=== PATIENT | female | born 2005 | race Caucasian/White ===

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

== ENCOUNTER 2023-03-07 11:44 | Emergency (ER) | payer BC, MEDICAID ==
[2023-03-07 12:36] LABS: APPEARANCE,URINE CLOUDY; BILIRUBIN,URINE NEGATIVE (NEGATIVE); COLOR,URINE YELLOW; GLUCOSE,URINE NEGATIVE (NEGATIVE); KETONES,URINE NEGATIVE (NEGATIVE); LEUKOCYTE ESTERASE,URINE TRACE (NEGATIVE); NITRITE,URINE POSITIVE (NEGATIVE); OCCULT BLOOD,URINE TRACE-INTACT (NEGATIVE); PH,URINE 5.5 (5.0-8.0); PROTEIN,URINE NEGATIVE (NEGATIVE); UROBILINOGEN,URINE 0.2 EU/dL (<2.0)
[2023-03-07 12:50] LABS: BACTERIA,URINE 3+ (NEGATIVE); EPITHELIAL CELLS,URINE FEW (NONE-FEW); MUCUS,URINE LIGHT (NONE-MOD); RBC,URINE 0-1 (0-2/HPF)
[2023-03-07 13:12] LABS: CORONAVIRUS COVID-19 NAA NEGATIVE (NEGATIVE); INFLUENZA A NAA NEGATIVE (NEGATIVE); INFLUENZA B NAA NEGATIVE (NEGATIVE)
[2023-03-07 13:21] LABS: BASOPHILS ABSOLUTE AUTO 0.09 K/uL (0.00-0.30); BASOPHILS PERCENT AUTO 0.7 % (0.0-1.0); EOSINOPHILS ABSOLUTE AUTO 0.18 K/uL (0.00-0.70); EOSINOPHILS PERCENT AUTO 1.4 % (0.0-5.0); HEMOGLOBIN 15.3 g/dL (12.0-16.0); IMMATURE GRAN ABSOLUTE AUTO 0.04 K/uL (0.00-0.05); IMMATURE GRAN PERCENT AUTO 0.3 % (0.0-0.4); LYMPHOCYTES ABSOLUTE AUTO 3.76 K/uL (2.00-8.80); LYMPHOCYTES PERCENT AUTO 30.1 % (50.0-65.0); MEAN CORPUSCULAR HEMOGLOBIN 29.3 pg (28.0-32.0); MEAN CORPUSCULAR VOLUME 86.2 fL (83.0-99.0); MEAN PLATELET VOLUME 8.4 fL (9.4-12.3); MONOCYTES ABSOLUTE AUTO 0.66 K/uL (0.10-1.40); MONOCYTES PERCENT AUTO 5.3 % (2.0-10.0); NEUTROPHILS ABSOLUTE AUTO 7.75 K/uL (1.50-8.50); NEUTROPHILS PERCENT AUTO 62.2 % (35.0-45.0); PLATELET COUNT,PLT 304 K/uL (150-400); RED BLOOD CELL COUNT 5.22 M/uL (4.10-5.30); WHITE BLOOD CELL COUNT,WBC 12.48 K/uL (4.5-13.5)
[2023-03-07 13:38] LABS: A/G RATIO 1.1 (0.9-1.6); BILIRUBIN TOTAL 0.2 mg/dL (0.2-1.0); CALCIUM 9.8 mg/dL (8.5-10.1); CARBON DIOXIDE,CO2 27.5 mmol/L (21.0-32.0); EST CRCL DRUG DOSING (CG) 74.85 mL/min; POTASSIUM,K 3.9 mmol/L (3.5-5.1); PROTEIN TOTAL,TP 7.7 g/dL (6.4-8.2)
[2023-03-07 13:52] VITALS: BP 149/78
[2023-03-07 17:08] VITALS: PULSE 72
[2023-03-07] MEDS ORDERED: Iopamidol 755 MG/ML 500 ML Multipack Bottle IVPUSH ONE (17:47)
== END 2023-03-07 17:08 | disposition home or self-care (01) ==
LOC: MW.ED 11:44
DX: N12 Tubulo-interstitial nephritis, not specified as acute or chronic (principal); I10 Essential (primary) hypertension; Z91.018 Allergy to other foods; Z88.1 Allergy status to other antibiotic agents; Z20.822 Contact with and (suspected) exposure to COVID-19
CPT/HCPCS: 0240U; 36415; 74177; 80053; 81001; 81025; 83605; 83690; 85025; 87086; 87651; 99284; Q9967; 87088; 87186

== ENCOUNTER 2023-08-21 16:25 | Emergency (ER) | payer MEDICAID ==
[2023-08-21] MEDS: Acetaminophen 500 MG Tab PO STA (17:21)
[2023-08-21] MEDS: Ketorolac 30 MG/ML SDV IVPUSH STA (17:21)
[2023-08-21] MEDS: Sodium Chloride 0.9% 1,000 ML IV STA (17:21)
[2023-08-21 17:40] LABS: BASOPHILS PERCENT AUTO 0.7 % (0.0-1.0); EOSINOPHILS ABSOLUTE AUTO 0.11 K/uL (0.00-0.45); EOSINOPHILS PERCENT AUTO 0.7 % (0.0-6.0); HEMATOCRIT 45.7 % (37.0-47.0); HEMOGLOBIN 16.1 g/dL (12.0-16.0); IMMATURE GRAN ABSOLUTE AUTO 0.03 K/uL (0.00-0.05); IMMATURE GRAN PERCENT AUTO 0.2 % (0.0-0.4); LYMPHOCYTES ABSOLUTE AUTO 2.74 K/uL (1.00-4.80); LYMPHOCYTES PERCENT AUTO 17.9 % (24.0-44.0); MEAN CORPUSCULAR HEMOGLOBIN 29.3 pg (28.0-32.0); MEAN CORPUSCULAR HGB CONC 35.2 g/dL (32.0-36.0); MEAN CORPUSCULAR VOLUME 83.2 fL (83.0-99.0); MEAN PLATELET VOLUME 8.5 fL (9.4-12.3); MONOCYTES ABSOLUTE AUTO 0.94 K/uL (0.00-0.80); MONOCYTES PERCENT AUTO 6.2 % (0.0-8.0); NEUTROPHILS ABSOLUTE AUTO 11.36 K/uL (1.80-7.70); NEUTROPHILS PERCENT AUTO 74.3 % (41.0-71.0); PLATELET COUNT,PLT 316 K/uL (150-400); RED BLOOD CELL COUNT 5.49 M/uL (4.10-5.30); WHITE BLOOD CELL COUNT,WBC 15.28 K/uL (3.9-11.3)
[2023-08-21 18:13] LABS: A/G RATIO 0.9 (0.9-1.6); ALBUMIN 3.7 g/dL (3.4-5.0); BILIRUBIN TOTAL 0.3 mg/dL (0.2-1.0); CALCIUM 9.9 mg/dL (8.5-10.1); CARBON DIOXIDE,CO2 21.5 mmol/L (21.0-32.0); EST CRCL DRUG DOSING (CG) 74.23 mL/min; POTASSIUM,K 3.8 mmol/L (3.5-5.1); PROTEIN TOTAL,TP 7.6 g/dL (6.4-8.2)
[2023-08-21 18:22] LABS: APPEARANCE,URINE CLEAR; BILIRUBIN,URINE NEGATIVE (NEGATIVE); COLOR,URINE YELLOW; GLUCOSE,URINE NEGATIVE (NEGATIVE); KETONES,URINE NEGATIVE (NEGATIVE); LEUKOCYTE ESTERASE,URINE NEGATIVE (NEGATIVE); NITRITE,URINE NEGATIVE (NEGATIVE); OCCULT BLOOD,URINE SMALL (NEGATIVE); PROTEIN,URINE NEGATIVE (NEGATIVE); UROBILINOGEN,URINE 0.2 EU/dL (<2.0)
[2023-08-21 18:31] LABS: BACTERIA,URINE FEW (NEGATIVE); SQUAMOUS EPITHELIAL CELLS,UR FEW; WBC,URINE 0-1 (0-5/HPF)
[2023-08-21 18:32] LABS: MUCUS,URINE NOT SEEN (NONE-MOD)
[2023-08-21] MEDS: Iopamidol 755 Mg/ML 100 ML Bottle IVPUSH STA (19:14)
[2023-08-21 20:40] VITALS: BP 131/87; PULSE 84
== END 2023-08-21 20:38 | disposition home or self-care (01) ==
LOC: MW.ED 16:25
DX: R10.9 Unspecified abdominal pain (principal); I10 Essential (primary) hypertension; Z75.8 Other problems related to medical facilities and other health care; Z88.1 Allergy status to other antibiotic agents; Z91.018 Allergy to other foods; Z79.899 Other long term (current) drug therapy
CPT/HCPCS: 36415; 74177; 80053; 81001; 83605; 83690; 84703; 85025; 87040; 87086; 96361; 96374; 99284; A9270; J1885; J7030; Q9967

== ENCOUNTER 2023-09-23 18:00 | Emergency (ER) | payer MEDICAID ==
[2023-09-23 19:35] VITALS: BP 137/94; PULSE 73
== END 2023-09-23 19:34 | disposition home or self-care (01) ==
LOC: MW.ED 18:00
DX: L03.316 Cellulitis of umbilicus (principal); I10 Essential (primary) hypertension; J45.909 Unspecified asthma, uncomplicated; Z91.018 Allergy to other foods; Z88.1 Allergy status to other antibiotic agents; Z79.899 Other long term (current) drug therapy
CPT/HCPCS: 99283

== ENCOUNTER 2023-12-12 20:00 | Emergency (ER) | payer MEDICAID ==
[2023-12-12 20:16] VITALS: BP 128/88; PULSE 90
[2023-12-12 20:58] LABS: BASOPHILS ABSOLUTE AUTO 0.05 K/uL (0.00-0.20); BASOPHILS PERCENT AUTO 0.4 % (0.0-1.0); EOSINOPHILS ABSOLUTE AUTO 0.09 K/uL (0.00-0.45); EOSINOPHILS PERCENT AUTO 0.8 % (0.0-6.0); HEMATOCRIT 40.3 % (37.0-47.0); IMMATURE GRAN ABSOLUTE AUTO 0.02 K/uL (0.00-0.05); IMMATURE GRAN PERCENT AUTO 0.2 % (0.0-0.4); LYMPHOCYTES ABSOLUTE AUTO 2.87 K/uL (1.00-4.80); LYMPHOCYTES PERCENT AUTO 25.4 % (24.0-44.0); MEAN CORPUSCULAR HEMOGLOBIN 28.9 pg (28.0-32.0); MEAN CORPUSCULAR HGB CONC 34.7 g/dL (32.0-36.0); MEAN CORPUSCULAR VOLUME 83.1 fL (83.0-99.0); MEAN PLATELET VOLUME 8.3 fL (9.4-12.3); MONOCYTES ABSOLUTE AUTO 0.86 K/uL (0.00-0.80); MONOCYTES PERCENT AUTO 7.6 % (0.0-8.0); NEUTROPHILS ABSOLUTE AUTO 7.43 K/uL (1.80-7.70); NEUTROPHILS PERCENT AUTO 65.6 % (41.0-71.0); PLATELET COUNT,PLT 286 K/uL (150-400); RED BLOOD CELL COUNT 4.85 M/uL (4.10-5.30); WHITE BLOOD CELL COUNT,WBC 11.32 K/uL (3.9-11.3)
[2023-12-12 21:25] LABS: A/G RATIO 1.1 (0.9-1.6); ALBUMIN 3.7 g/dL (3.4-5.0); BILIRUBIN TOTAL 0.4 mg/dL (0.2-1.0); CALCIUM 9.7 mg/dL (8.5-10.1); CARBON DIOXIDE,CO2 23.8 mmol/L (21.0-32.0); CREATININE 0.8 mg/dL (0.6-1.0); EST CRCL DRUG DOSING (CG) 92.79 mL/min; POTASSIUM,K 3.6 mmol/L (3.5-5.1)
[2023-12-12] MEDS: Sodium Chloride 0.9% 1,000 ML IV STA (21:34)
[2023-12-12] MEDS: Ondansetron 4 MG/2 ML SDV IVPUSH STA (21:34)
[2023-12-12 22:09] LABS: APPEARANCE,URINE CLEAR; BILIRUBIN,URINE NEGATIVE (NEGATIVE); COLOR,URINE YELLOW; GLUCOSE,URINE NEGATIVE (NEGATIVE); KETONES,URINE NEGATIVE (NEGATIVE); LEUKOCYTE ESTERASE,URINE NEGATIVE (NEGATIVE); NITRITE,URINE NEGATIVE (NEGATIVE); OCCULT BLOOD,URINE NEGATIVE (NEGATIVE); PROTEIN,URINE NEGATIVE (NEGATIVE); UROBILINOGEN,URINE 0.2 EU/dL (<2.0)
[2023-12-12] MEDS: Magnesium Oxide 400 MG Tab PO STA (22:20)
== END 2023-12-12 22:45 | disposition home or self-care (01) ==
LOC: MW.ED 20:00
DX: O10.911 Unspecified pre-existing hypertension complicating pregnancy, first trimester (principal); O21.9 Vomiting of pregnancy, unspecified; O99.281 Endocrine, nutritional and metabolic diseases complicating pregnancy, first trimester; E83.42 Hypomagnesemia; Z79.899 Other long term (current) drug therapy; Z88.1 Allergy status to other antibiotic agents; Z91.018 Allergy to other foods; Z75.8 Other problems related to medical facilities and other health care; Z3A.01 Less than 8 weeks gestation of pregnancy
CPT/HCPCS: 36415; 80053; 81003; 83690; 83735; 84702; 85025; 96361; 96374; 99284; A9270; J2405; J7030

== ENCOUNTER 2024-03-02 20:42 | Emergency (ER) | payer MEDICAID ==
[2024-03-02 21:03] LABS: BASOPHILS ABSOLUTE AUTO 0.03 K/uL (0.00-0.20); BASOPHILS PERCENT AUTO 0.2 % (0.0-1.0); EOSINOPHILS ABSOLUTE AUTO 0.05 K/uL (0.00-0.45); EOSINOPHILS PERCENT AUTO 0.3 % (0.0-6.0); HEMATOCRIT 37.8 % (37.0-47.0); HEMOGLOBIN 13.5 g/dL (12.0-16.0); IMMATURE GRAN ABSOLUTE AUTO 0.08 K/uL (0.00-0.05); IMMATURE GRAN PERCENT AUTO 0.4 % (0.0-0.4); LYMPHOCYTES ABSOLUTE AUTO 1.88 K/uL (1.00-4.80); LYMPHOCYTES PERCENT AUTO 10.4 % (24.0-44.0); MEAN CORPUSCULAR HEMOGLOBIN 29.4 pg (28.0-32.0); MEAN CORPUSCULAR HGB CONC 35.7 g/dL (32.0-36.0); MEAN CORPUSCULAR VOLUME 82.4 fL (83.0-99.0); MEAN PLATELET VOLUME 8.1 fL (9.4-12.3); MONOCYTES ABSOLUTE AUTO 1.17 K/uL (0.00-0.80); MONOCYTES PERCENT AUTO 6.5 % (0.0-8.0); NEUTROPHILS ABSOLUTE AUTO 14.92 K/uL (1.80-7.70); NEUTROPHILS PERCENT AUTO 82.2 % (41.0-71.0); PLATELET COUNT,PLT 278 K/uL (150-400); RED BLOOD CELL COUNT 4.59 M/uL (4.10-5.30); WHITE BLOOD CELL COUNT,WBC 18.13 K/uL (3.9-11.3)
[2024-03-02 21:15] LABS: APPEARANCE,URINE CLEAR; BILIRUBIN,URINE NEGATIVE (NEGATIVE); COLOR,URINE YELLOW; GLUCOSE,URINE NEGATIVE (NEGATIVE); KETONES,URINE NEGATIVE (NEGATIVE); LEUKOCYTE ESTERASE,URINE NEGATIVE (NEGATIVE); NITRITE,URINE NEGATIVE (NEGATIVE); OCCULT BLOOD,URINE NEGATIVE (NEGATIVE); PH,URINE 6.5 (5.0-8.0); PROTEIN,URINE NEGATIVE (NEGATIVE); UROBILINOGEN,URINE 0.2 EU/dL (<2.0)
[2024-03-02 21:32] LABS: A/G RATIO 0.8 (0.9-1.6); ALANINE AMINOTRANSFERASE,ALT 14 IU/L (14-63); ALBUMIN 3.3 g/dL (3.4-5.0); ALKALINE PHOSPHATASE 83 U/L (46-116); ASPARTATE AMNIOTRANSFERASE,AST 12 IU/L (15-37); BILIRUBIN TOTAL 0.3 mg/dL (0.2-1.0); BLOOD UREA NITROGEN,BUN 8 mg/dL (7.0-18.0); CALCIUM 9.6 mg/dL (8.5-10.1); CARBON DIOXIDE,CO2 26.5 mmol/L (21.0-32.0); CHLORIDE,CL 100 mmol/L (98-107); CREATININE 0.8 mg/dL (0.6-1.0); GLUCOSE RANDOM 86 mg/dL (74-106); LIPASE 33 U/L (16-77); POTASSIUM,K 3.8 mmol/L (3.5-5.1); PROTEIN TOTAL,TP 7.7 g/dL (6.4-8.2); SODIUM,NA 136 mmol/L (136-145)
[2024-03-02 21:33] LABS: ESTIMATED GFR 108 mL/min (>60)
[2024-03-02] MEDS: Erythromycin Base 0.5% Ophth Oint 1 GM Tube EYELF STA (22:29)
[2024-03-02] MEDS: Magnesium Oxide 400 MG Tab PO STA (22:29)
[2024-03-02 22:43] VITALS: BP 116/64; PULSE 86
== END 2024-03-02 22:42 | disposition home or self-care (01) ==
LOC: MW.ED 20:42
DX: O99.891 Other specified diseases and conditions complicating pregnancy (principal); R51.9 Headache, unspecified; H10.89 Other conjunctivitis; O10.012 Pre-existing essential hypertension complicating pregnancy, second trimester; O99.282 Endocrine, nutritional and metabolic diseases complicating pregnancy, second trimester; E83.42 Hypomagnesemia; O99.512 Diseases of the respiratory system complicating pregnancy, second trimester; J45.909 Unspecified asthma, uncomplicated; Z91.018 Allergy to other foods; Z88.1 Allergy status to other antibiotic agents; Z75.8 Other problems related to medical facilities and other health care; Z79.899 Other long term (current) drug therapy; Z3A.18 18 weeks gestation of pregnancy
CPT/HCPCS: 36415; 80053; 81003; 83690; 83735; 85025; 99283; A9270-GY

== ENCOUNTER 2024-04-26 10:34 | Emergency (ER) | payer MEDICAID ==
[2024-04-26] MEDS: Acetaminophen 500 MG Tab PO STA (11:06)
[2024-04-26 11:14] LABS: BASOPHILS ABSOLUTE AUTO 0.04 K/uL (0.00-0.20); BASOPHILS PERCENT AUTO 0.3 % (0.0-1.0); EOSINOPHILS ABSOLUTE AUTO 0.07 K/uL (0.00-0.45); EOSINOPHILS PERCENT AUTO 0.5 % (0.0-6.0); HEMOGLOBIN 12.6 g/dL (12.0-16.0); IMMATURE GRAN ABSOLUTE AUTO 0.08 K/uL (0.00-0.05); IMMATURE GRAN PERCENT AUTO 0.6 % (0.0-0.4); LYMPHOCYTES ABSOLUTE AUTO 2.16 K/uL (1.00-4.80); LYMPHOCYTES PERCENT AUTO 16.4 % (24.0-44.0); MEAN CORPUSCULAR HEMOGLOBIN 29.2 pg (28.0-32.0); MEAN CORPUSCULAR VOLUME 83.5 fL (83.0-99.0); MEAN PLATELET VOLUME 8.5 fL (9.4-12.3); MONOCYTES ABSOLUTE AUTO 0.77 K/uL (0.00-0.80); MONOCYTES PERCENT AUTO 5.9 % (0.0-8.0); NEUTROPHILS ABSOLUTE AUTO 10.03 K/uL (1.80-7.70); NEUTROPHILS PERCENT AUTO 76.3 % (41.0-71.0); PLATELET COUNT,PLT 242 K/uL (150-400); RED BLOOD CELL COUNT 4.31 M/uL (4.10-5.30); WHITE BLOOD CELL COUNT,WBC 13.15 K/uL (3.9-11.3)
[2024-04-26 11:27] LABS: INR 0.96 (0.86-1.11)
[2024-04-26 11:47] LABS: A/G RATIO 0.7 (0.9-1.6); ALANINE AMINOTRANSFERASE,ALT 19 IU/L (14-63); ALBUMIN 2.9 g/dL (3.4-5.0); ALKALINE PHOSPHATASE 84 U/L (46-116); ASPARTATE AMNIOTRANSFERASE,AST 11 IU/L (15-37); BILIRUBIN TOTAL 0.2 mg/dL (0.2-1.0); BLOOD UREA NITROGEN,BUN 8 mg/dL (7.0-18.0); CALCIUM 9.9 mg/dL (8.5-10.1); CHLORIDE,CL 102 mmol/L (98-107); CREATININE 0.8 mg/dL (0.6-1.0); EST CRCL DRUG DOSING (CG) 92.79 mL/min; GLUCOSE RANDOM 83 mg/dL (74-106); LACTATE DEHYDROGENASE,LDH 157 U/L (81-234); LIPASE 34 U/L (16-77); MAGNESIUM 1.5 mg/dL (1.8-2.4); PROTEIN TOTAL,TP 6.9 g/dL (6.4-8.2); SODIUM,NA 138 mmol/L (136-145)
[2024-04-26 11:52] LABS: ESTIMATED GFR 108 mL/min (>60)
[2024-04-26] MEDS: Magnesium Sulf/Wat 2 GM/50 mL 2 GM in Premix Bag 1 BAG IV STA (12:22)
[2024-04-26] MEDS: Sodium Chloride 0.9% 1,000 ML IV STA (12:22)
[2024-04-26 12:35] LABS: BILIRUBIN,URINE NEGATIVE (NEGATIVE); COLOR,URINE YELLOW; GLUCOSE,URINE NEGATIVE (NEGATIVE); KETONES,URINE NEGATIVE (NEGATIVE); LEUKOCYTE ESTERASE,URINE TRACE (NEGATIVE); NITRITE,URINE NEGATIVE (NEGATIVE); OCCULT BLOOD,URINE NEGATIVE (NEGATIVE); PROTEIN,URINE NEGATIVE (NEGATIVE); UROBILINOGEN,URINE 0.2 EU/dL (<2.0)
[2024-04-26 12:39] LABS: APPEARANCE,URINE HAZY
[2024-04-26 12:49] LABS: BACTERIA,URINE 1+ (NEGATIVE); EPITHELIAL CELLS,URINE FEW (NONE-FEW); RBC,URINE 0-2 (0-2/HPF); WBC,URINE 0-5 (0-5/HPF)
[2024-04-26 14:00] VITALS: BP 111/71; PULSE 76
== END 2024-04-26 13:58 | disposition home or self-care (01) ==
LOC: MW.ED 10:34
DX: O99.891 Other specified diseases and conditions complicating pregnancy (principal); R82.71 Bacteriuria; M62.830 Muscle spasm of back; O10.012 Pre-existing essential hypertension complicating pregnancy, second trimester; O99.512 Diseases of the respiratory system complicating pregnancy, second trimester; J45.909 Unspecified asthma, uncomplicated; Z3A.26 26 weeks gestation of pregnancy; Z88.1 Allergy status to other antibiotic agents; Z75.8 Other problems related to medical facilities and other health care; Z91.018 Allergy to other foods
CPT/HCPCS: 36415; 80053; 81001; 83615; 83690; 83735; 84484; 85025; 85610; 87086; 93005; 96365; 99285; A9270; J3475; J7030

== ENCOUNTER 2024-07-10 15:30 | Inpatient (IN) | payer MEDICAID, OTHER ==
[2024-07-10] MEDS ORDERED: Carboprost Tromethamine 250 MCG/1 mL Vial IM PRN (21:06)
[2024-07-10] MEDS ORDERED: Methylergonovine 0.2 MG/1 ML Amp IM PRN (21:06)
[2024-07-10] MEDS ORDERED: Sodium Chloride 0.9% 2.5 ML Syringe FLUSH PRN (21:06)
[2024-07-10] MEDS ORDERED: Misoprostol 200 MCG Tab PO PRN (21:06)
[2024-07-10] MEDS ORDERED: Sodium Chloride 0.9% 20 ML SDV IV PRN (21:06)
[2024-07-10] MEDS ORDERED: Lidocaine 1% 50 ML MDV INJECT PRN (21:06)
[2024-07-10] MEDS ORDERED: Water For Irrigation,Sterile 1,000 ML Container IRR PRN (21:06)
[2024-07-10] MEDS ORDERED: Misoprostol 200 MCG Tab RECTAL PRN (21:06)
[2024-07-10] MEDS ORDERED: Sodium Chloride 0.9% 10 ML Syringe FLUSH PRN (21:06)
[2024-07-10] MEDS ORDERED: Oxytocin/0.9 % Sodium Chloride 30 UNIT/500 ML BAG IV SCH (21:15)
[2024-07-10] MEDS ORDERED: Tranexamic Acid in NACL,ISO-OS 1,000 MG in Premix Bag 1 BAG IV PRN (21:19)
[2024-07-10] MEDS ORDERED: Glucagon,Human Recombinant 1 MG Vial IM PRN ×2 (21:20→22:18)
[2024-07-10] MEDS ORDERED: 50% Dextrose in Water 50 ML Syringe IVPUSH PRN ×2 (21:20→22:18)
[2024-07-10] MEDS ORDERED: Insulin Regular in 0.9 % NACL 100 ML IV SCH (21:30)
[2024-07-10] MEDS ORDERED: Dextrose 5%-0.9% NaCl 1,000 ML IV SCH (21:30)
[2024-07-10 22:29] LABS: HEMATOCRIT 37.9 % (37.0-47.0); HEMOGLOBIN 13.2 g/dL (12.0-16.0); MEAN CORPUSCULAR HEMOGLOBIN 28.4 pg (28.0-32.0); MEAN CORPUSCULAR HGB CONC 34.8 g/dL (32.0-36.0); MEAN CORPUSCULAR VOLUME 81.5 fL (83.0-99.0); MEAN PLATELET VOLUME 8.9 fL (9.4-12.3); PLATELET COUNT,PLT 264 K/uL (150-400); RED BLOOD CELL COUNT 4.65 M/uL (4.10-5.30)
[2024-07-10] MEDS: Insulin Glargine,Human Rec. Analog 100 Units/ML 3 ML Pen SUBCUT ONE (22:30)
[2024-07-10] MEDS: Misoprostol 25 MCG (1/4 of 100 MCG) Tab VAG PRN (22:40)
[2024-07-10] MEDS: Misoprostol 50 MCG (1/2 of 100 MCG) Tab PO ONE (22:41)
[2024-07-10] MEDS: Labetalol 100 MG Tab PO SCH (22:41)
[2024-07-10] MEDS: valACYclovir 500 MG Tab PO SCH (22:53)
[2024-07-11] MEDS: Butorphanol 1 MG/ML SDV IVPUSH PRN (01:23)
[2024-07-11] MEDS: Misoprostol 25 MCG (1/4 of 100 MCG) Tab VAG PRN (03:32)
[2024-07-11 04:41] LABS: CREATININE,URINE RAND 61.9 mg/dL; PROTEIN CREATININE RATIO,URINE 0.2; PROTEIN,URINE RANDOM 12.5 mg/dL (<11.9)
[2024-07-11 04:45] LABS: A/G RATIO 0.9 (0.9-1.6); ALBUMIN 3.2 g/dL (3.4-5.0); BILIRUBIN TOTAL 0.3 mg/dL (0.2-1.0); CALCIUM 10.1 mg/dL (8.5-10.1); CARBON DIOXIDE,CO2 22.9 mmol/L (21.0-32.0); CREATININE 0.9 mg/dL (0.6-1.0); EST CRCL DRUG DOSING (CG) 81.79 mL/min; POTASSIUM,K 3.5 mmol/L (3.5-5.1); PROTEIN TOTAL,TP 6.9 g/dL (6.4-8.2)
[2024-07-11] MEDS: Lactated Ringers 1,000 ML IV SCH (05:44)
[2024-07-11] MEDS: Ropivacaine HCl/PF 400 MG in Premix Bag 1 BAG EPIDUR SCH (09:00)
[2024-07-11] MEDS ORDERED: ePHEDrine 50 MG/ML SDV IM PRN (09:09)
[2024-07-11] MEDS ORDERED: Phenylephrine HCl In 0.9% NaCl 1 MG/10 ML Syringe IVPUSH PRN (09:09)
[2024-07-11] MEDS ORDERED: ePHEDrine 50 MG/ML SDV IVPUSH PRN (09:09)
[2024-07-11] MEDS ORDERED: dexmedeTOMIDine HCl 200 MCG/2 ML SDV EPIDUR SCH (09:15)
[2024-07-11] MEDS: Oxytocin/0.9 % Sodium Chloride 30 UNIT/500 ML BAG IV SCH (10:15)
[2024-07-11] MEDS: Citric Acid/Sodium Citrate Solution 30 ML Cup PO ONE (11:29)
[2024-07-11] MEDS: Ondansetron 4 MG/2 ML SDV IVPUSH PRN (11:29)
[2024-07-11] MEDS: Terbutaline 1 MG/ML SDV SUBCUT PRN (13:37)
[2024-07-11] MEDS: dexmedeTOMIDine HCl 200 MCG/2 ML SDV ONE (14:23)
[2024-07-11] MEDS: Ropivacaine HCl/PF 200 ML ONE (14:23)
[2024-07-11] MEDS: Bupivacaine 0.5% 10 ML SDV ONE (14:23)
[2024-07-11] MEDS: Phenylephrine HCl In 0.9% NaCl 1 MG/10 ML Syringe ONE (14:23)
[2024-07-11] MEDS ORDERED: Lanolin 100% Cream 7 GM Tube TOP PRN (16:05)
[2024-07-11] MEDS ORDERED: Docusate Sodium 100 MG Cap PO PRN (16:05)
[2024-07-11 17:43] LABS: PH,UMBILICAL ARTERIAL 7.26 (7.18-7.38); PH,UMBILICAL VENOUS 7.34 (7.25-7.45)
[2024-07-11] MEDS: Benzocaine/Menthol 20%-0.5% Spray 78 GM Cannister TOP PRN (18:47)
[2024-07-11] MEDS: Witch Hazel Medicated Pads 40/Jar TOP PRN (18:47)
[2024-07-11] MEDS: Ibuprofen 800 MG Tab PO PRN (21:15)
[2024-07-11] MEDS: Labetalol 100 MG Tab PO SCH (21:29)
[2024-07-12] MEDS: Acetaminophen 500 MG Tab PO PRN (01:23)
[2024-07-12 06:53] LABS: HEMATOCRIT 34.5 % (37.0-47.0); HEMOGLOBIN 11.6 g/dL (12.0-16.0)
[2024-07-12 07:05] LABS: CALCIUM 9.1 mg/dL (8.5-10.1); CARBON DIOXIDE,CO2 23.6 mmol/L (21.0-32.0); CREATININE 0.9 mg/dL (0.6-1.0); EST CRCL DRUG DOSING (CG) 81.79 mL/min; POTASSIUM,K 3.8 mmol/L (3.5-5.1)
[2024-07-12] MEDS: Prenatal Multivitamin with Calcium/Folic Acid/Iron Tab PO SCH (09:34)
[2024-07-13] MEDS: Measles, Mumps & Rubella Vaccine 0.5 ML SDV SUBCUT ONE (13:38)
[2024-07-13 16:25] VITALS: BP 131/74; PULSE 86
== END 2024-07-13 16:50 | disposition home or self-care (01) | DRG 806 ==
LOC: MW.OB 15:30 → OBSVTOIN 07-11 15:30 → MW.OB 07-11 22:01
PROVIDERS: ADMIT Obstetrics & Gynecology; ATTEND Obstetrics & Gynecology
PROC: 10E0XZZ Delivery of Products of Conception, External Approach (ICD-10-PCS; principal; 2024-07-11)
PROC: 3E0234Z Introduction of Serum, Toxoid and Vaccine into Muscle, Percutaneous Approach (ICD-10-PCS; 2024-07-11)
PROC: 3E0R3BZ Introduction of Anesthetic Agent into Spinal Canal, Percutaneous Approach (ICD-10-PCS; 2024-07-11)
PROC: 3E0DXGC Introduction of Other Therapeutic Substance into Mouth and Pharynx, External Approach (ICD-10-PCS; 2024-07-11)
PROC: 3E033VJ Introduction of Other Hormone into Peripheral Vein, Percutaneous Approach (ICD-10-PCS; 2024-07-11)
PROC: 10907ZC Drainage of Amniotic Fluid, Therapeutic from Products of Conception, Via Natural or Artificial Opening (ICD-10-PCS; 2024-07-11)
DX: O16.4 Unspecified maternal hypertension, complicating childbirth (principal); O98.52 Other viral diseases complicating childbirth; Z37.0 Single live birth; O24.424 Gestational diabetes mellitus in childbirth, insulin controlled; A60.00 Herpesviral infection of urogenital system, unspecified; Z3A.36 36 weeks gestation of pregnancy; Z23 Encounter for immunization; Z67.91 Unspecified blood type, Rh negative; Z88.8 Allergy status to other drugs, medicaments and biological substances
CPT/HCPCS: 01967; 36415; 51702; 59025; 59409; 80048; 80053; 82570; 82803; 82947; 83615; 84156; 85014; 85018; 85027; 85460; 86592; 86850; 86900; 86901; 90471; 90707; A9270-GY; J0595; J0665; J2371; J2405; J2590; J2791; J2795; J7120